=== PATIENT | male | born 1985 | race Caucasian/White ===

== ENCOUNTER 2016-06-29 08:21 | Emergency (ER) | payer MEDICARE ==
[~2016-06-29] VITALS: Ht 180.3 cm; Wt 59.0 kg
[2016-06-29] MEDS ORDERED: LIDO:MAALOX:DONNATAL 1:1:1 15 ML SINGLE DOSE SWSW ONE (09:30)
[2016-06-29] MEDS ORDERED: ONDANSETRON ODT 4 MG TAB.RAPDIS PO ONE (09:30)
[2016-06-29] MEDS ORDERED: HYDROCODONE/APAP 5/325MG TABLET. PO ONE (09:30)
[2016-06-29 09:54] LABS: BASO # 0.1 x10^3/uL (0.0-0.2); BASO % 1 % (0-3); EOS % 2 % (0-3); HEMOGLOBIN 15.1 g/dL (13.0-17.5); LYMPH # 2.1 x10^3/uL (1.0-4.8); LYMPH % 25 % (24-48); MEAN CORPUSCULAR HEMOGLOBIN 31 pg (25-35); MEAN CORPUSCULAR HGB CONC 34 g/dL (31-37); MEAN CORPUSCULAR VOLUME 89 fL (79-100); MONO % 8 % (0-9); NEUT % 64 % (31-73); PLATELET COUNT 168 x10^3/uL (140-400); RED BLOOD COUNT 4.95 x10^6/uL (4.30-5.70); RED CELL DISTRIBUTION WIDTH 12.3 % (11.5-14.5); WHITE BLOOD COUNT 8.1 x10^3/uL (4.0-11.0)
[2016-06-29 10:15] LABS: ANION GAP 9 (6-14); BLOOD UREA NITROGEN 12 mg/dL (8-26); CALCIUM 8.9 mg/dL (8.5-10.1); CARBON DIOXIDE 26 mmol/L (21-32); CHLORIDE 107 mmol/L (98-107); CREATININE 0.7 mg/dL (0.7-1.3); GFR 132.4; GLUCOSE 95 mg/dL (70-99); POTASSIUM 3.8 mmol/L (3.5-5.1); SODIUM 142 mmol/L (136-145)
[2016-06-29 10:17] LABS: ALBUMIN 3.6 g/dL (3.4-5.0); ALK PHOS 78 U/L (46-116); ALT (SGPT) 17 U/L (16-63); AST (SGOT) 17 U/L (15-37); DIRECT BILIRUBIN < 0.1 mg/dL (0.0-0.2); TOTAL BILIRUBIN 0.3 mg/dL (0.2-1.0); TOTAL PROTEIN 6.7 g/dL (6.4-8.2)
[2016-06-29] MEDS ORDERED: FAMO40TA57 PO (10:31)
[2016-06-29] MEDS ORDERED: HYDR-2666 PO (10:31)
--- NOTE | 2016-06-29 10:32 | PHYS DOC ---
Past Medical History Past Medical History: Seizure Past Surgical History: Other Additional Past Surgical Histo: hernia repair, vericocele Alcohol Use: None Drug Use: Marijuana Adult General Chief Complaint Chief Complaint: ABDOMINAL PAIN HPI HPI 30-year-old male presenting to the emergency department with right upper quadrant abdominal pain over the last 24 hours. His pain is sharp moderate and wraps around to the back. It also wraps into his groin. He denies hematuria. It is worse with food. It is worse with fatty foods. It is worse with lying down. No alleviating factors present. He reports that he was seen in another emergency department multiple times including having a negative CT of the abdomen recently. Review of systems is negative for chest pain shortness of breath nausea vomiting diarrhea or constipation. All other review of systems is negative unless otherwise noted in history of present illness. Review of Systems Review of Systems SEE ABOVE. Current Medications Current Medications Current Medications Medications (Trade) Dose Ordered Sig/Estella Start Time Stop Time Status Last Admin Dose Admin Acetaminophen/ Hydrocodone Bitart (Lortab 5/325) 2 tab 1X ONCE 06/29/16 09:30 06/29/16 09:31 DC 06/29/16 09:38 2 TAB Multi-Ingredient Mouthwash/Gargle (Gi Cocktail Single Dose) 15 ml 1X ONCE 06/29/16 09:30 06/29/16 09:31 DC 06/29/16 09:38 15 ML Ondansetron HCl (Zofran Odt) 4 mg 1X ONCE 06/29/16 09:30 06/29/16 09:31 DC 06/29/16 09:36 4 MG Allergies Allergies Allergies Coded Allergies Type Severity Reaction Last Updated Verified No Known Drug Allergies 06/29/16 No Physical Exam Physical Exam Constitutional: Well developed, well nourished, no acute distress, non-toxic appearance. [] HENT: Normocephalic, atraumatic, bilateral external ears normal, oropharynx moist, no oral exudates, nose normal. [] Eyes: PERRLA, EOMI, conjunctiva normal, no discharge. [] Neck: Normal range of motion, no tenderness, supple, no stridor. [] Cardiovascular:Heart rate regular rhythm, no murmur [] Lungs & Thorax: Bilateral breath sounds clear to auscultation [] Abdomen: Soft nontender abdomen without rebound tenderness or guarding present. Negative McBurneys point. Negative Brown sign. No ecchymosis present. Skin: Warm, dry, no erythema, no rash. [] Back: No tenderness, no CVA tenderness. [] Extremities: No tenderness, no cyanosis, no clubbing, ROM intact, no edema. [] Neurologic: Alert and oriented X 3, normal motor function, normal sensory function, no focal deficits noted. [] Psychologic: Affect normal, judgement normal, mood normal. [] Current Patient Data Vital Signs Vital Signs Date Time Temp Pulse Resp B/P Pulse Ox O2 Delivery O2 Flow Rate FiO2 06/29/16 11:05 68 18 100/62 97 Room Air 06/29/16 08:56 97.9 97.9 Lab Values Laboratory Tests Test 06/29/16 09:25 White Blood Count 8.1x10^3/uL (4.0-11.0) Red Blood Count 4.95x10^6/uL (4.30-5.70) Hemoglobin 15.1g/dL (13.0-17.5) Hematocrit 44.0% (39.0-53.0) Mean Corpuscular Volume 89fL (79-100) Mean Corpuscular Hemoglobin 31pg (25-35) Mean Corpuscular Hemoglobin Concent 34g/dL (31-37) Red Cell Distribution Width 12.3% (11.5-14.5) Platelet Count 168x10^3/uL (140-400) Neutrophils (%) (Auto) 64% (31-73) Lymphocytes (%) (Auto) 25% (24-48) Monocytes (%) (Auto) 8% (0-9) Eosinophils (%) (Auto) 2% (0-3) Basophils (%) (Auto) 1% (0-3) Neutrophils # (Auto) 5.2x10^3uL (1.8-7.7) Lymphocytes # (Auto) 2.1x10^3/uL (1.0-4.8) Monocytes # (Auto) 0.7x10^3/uL (0.0-1.1) Eosinophils # (Auto) 0.1x10^3/uL (0.0-0.7) Basophils # (Auto) 0.1x10^3/uL (0.0-0.2) Sodium Level 142mmol/L (136-145) Potassium Level 3.8mmol/L (3.5-5.1) Chloride Level 107mmol/L (98-107) Carbon Dioxide Level 26mmol/L (21-32) Anion Gap 9 (6-14) Blood Urea Nitrogen 12mg/dL (8-26) Creatinine 0.7mg/dL (0.7-1.3) Estimated GFR (Cockcroft-Gault) 132.4 Glucose Level 95mg/dL (70-99) Calcium Level 8.9mg/dL (8.5-10.1) Total Bilirubin 0.3mg/dL (0.2-1.0) Direct Bilirubin < 0.1mg/dL (0.0-0.2) Aspartate Amino Transferase (AST) 17U/L (15-37) Alanine Aminotransferase (ALT) 17U/L (16-63) Alkaline Phosphatase 78U/L (46-116) Total Protein 6.7g/dL (6.4-8.2) Albumin 3.6g/dL (3.4-5.0) Lipase 107U/L (73-393) Laboratory Tests 06/29/16 09:25 Laboratory Tests 06/29/16 09:25 EKG EKG [] Radiology/Procedures Radiology/Procedures [] Course & Med Decision Making Course & Med Decision Making Pertinent Labs and Imaging studies reviewed. (See chart for details) [] 30-year-old male presenting with abdominal pain in the right upper quadrant. Vital signs afebrile normal heart rate. Gallbladder was nontender. Soft nontender abdomen in general. Blood work obtained which showed normal chemistry panel. GI cocktail given which improved his symptoms along with oral Lortab and Zofran. On reevaluation he is feeling better. He was in discharged home to follow up with his primary care physician in 2-3 days for outpatient continued evaluation workup and care. He may be a HIDA scan candidate if his symptoms continue. Dragon Disclaimer Dragon Disclaimer This electronic medical record was generated, in whole or in part, using a voice recognition dictation system. Departure Departure Impression: Primary Impression: Right upper quadrant abdominal pain Disposition: HOME, SELF-CARE Condition: STABLE Referrals: NO PCP (PCP) NOHEMI REED MD Patient Instructions: Abdominal Pain Additional Instructions: Thank you for allowing us to participate in your care today. Followup with your primary care physician in 3 days if your symptoms do not improve. If you do not have a primary care provider you can ask for a list of our primary care providers. Return to the emergency department you have any new or concerning findings. This should be evaluated by the primary care physician and any necessary consulting services for continued management within a few days after discharge. Return to emergency room if you have any new or concerning symptoms including but not limited to fever, chills, nausea, vomiting, intractable pain, any new rashes, chest pain, shortness of air, uncontrolled bleeding, difficulty breathing, and/or vision loss. You may have been prescribed medication that can change in your level of thinking and ability to operate machinery. These medications include hydrocodone and Ativan. Also, Benadryl has been known to do this as well. Be sure to check with your pharmacist and ask if the medications you've prescribed can affect your level of consciousness. I recommend not operating heavy machinery or driving while on medication such as these. Scripts Hydrocodone Bit/Acetaminophen (Hydrocodone-Apap 5-325 )1 Each Tablet1 Tab PO PRN Q6HRS PRN PAIN #6 TAB Be careful as this medication may cause you to be drowsy or tired. Do not drive on this medication. Prov:KYREE BROWN MD 06/29/16 Famotidine (Pepcid)40 Mg [id number] Mg PO HS #14 TAB Ref 0 Prov:KYREE BROWN MD 06/29/16 KYREE BROWN MD Jun 29, 2016 10:31
[2016-06-29 11:05] VITALS: BP 100/62
== END 2016-06-29 11:13 | disposition home or self-care (01) ==
LOC: ER 08:21
DX: R10.11 Right upper quadrant pain (principal); F12.10 Cannabis abuse, uncomplicated; Z98.890 Other specified postprocedural states; Z87.438 Personal history of other diseases of male genital organs
CPT/HCPCS: 36415; 80048; 80076; 83690; 85027; 99284; Q0162

== ENCOUNTER 2016-07-31 21:53 | Emergency (ER) | payer MEDICARE ==
[~2016-07-31] VITALS: Ht 180.3 cm; Wt 61.2 kg
[~2016-07-31 21:53] MED LIST: FAMO40TA57 PO; HYDR-2666 PO
--- NOTE | 2016-07-31 22:59 | PHYS DOC ---
Past Medical History Past Medical History: Seizure, Other Additional Past Medical Histor: cerebral palsy Past Surgical History: Other Additional Past Surgical Histo: hernia repair, vericocele Alcohol Use: None Drug Use: Marijuana Adult General Chief Complaint Chief Complaint: ABDOMINAL PAIN HPI HPI Patient is a 30 year old male who presents the emergency room with a complaint of diffuse abdominal pain that began this afternoon at approximately 6 PM. Patient has a history of chronic abdominal pain which she's been worked up in [facility]. He recently had a HIDA scan performed to rule out gallbladder dysfunction. He reports that the HIDA scan was normal. Patient was seen here in June of this year with a similar complaint as well. Patient states he is currently waiting on a consult for "scoping". He has had multiple CT scans performed within the past 2 years. He denies vomiting, diarrhea or constipation. He states that he feels a little nauseous at times with the pain. Patient states that his pain was primarily To moderately controlled with Lortab. He states this change last week with his primary care doctor put him on anti-inflammatories. Patient states that he was at work tonight when the pain began to escalate. He states that he was able to complete some of his chores around work and then the pain began to double him over. He states that his last by mouth intake was approximately 8 PM. He states that his last bowel movement was 6 PM it was normal. He denies any dysuria or hematuria. Denies flank pain. He denies pain in his penis or testicles. Patient states that if his pain gets out of control, he has seizures. He is concerned that he may have a seizure because of the pain this evening. Review of Systems Review of Systems Constitutional: Denies fever or chills [] Eyes: Denies change in visual acuity, redness, or eye pain [] HENT: Denies nasal congestion or sore throat [] Respiratory: Denies cough or shortness of breath [] Cardiovascular: No additional information not addressed in HPI [] GI: Denies abdominal pain, nausea, vomiting, bloody stools or diarrhea [] : Denies dysuria or hematuria [] Musculoskeletal: Denies back pain or joint pain [] Integument: Denies rash or skin lesions [] Neurologic: Denies headache, focal weakness or sensory changes [] Endocrine: Denies polyuria or polydipsia [] Current Medications Current Medications Current Medications Medications (Trade) Dose Ordered Sig/Estella Start Time Stop Time Status Last Admin Dose Admin Diphenhydramine HCl (Benadryl) 25 mg 1X ONCE 07/31/16 23:00 07/31/16 23:01 DC 07/31/16 23:18 25 MG Fentanyl Citrate (Fentanyl 2ml Vial) 50 mcg 1X ONCE 07/31/16 23:00 07/31/16 23:01 DC 07/31/16 23:19 50 MCG Metoclopramide HCl (Reglan) 10 mg 1X ONCE 07/31/16 23:00 07/31/16 23:01 DC 07/31/16 23:18 10 MG Sodium Chloride (Iv Sodium Chloride 0.9% 1000ml Bag) 1,000 ml @ 1,000 mls/hr Q1H 07/31/16 23:00 07/31/16 23:59 DC 07/31/16 23:18 1,000 MLS/HR Sodium Chloride (Normal Saline Flush) 10 ml QSHIFT PRN 07/31/16 23:00 08/01/16 00:01 DC Allergies Allergies Allergies Coded Allergies Type Severity Reaction Last Updated Verified No Known Drug Allergies 06/29/16 No Physical Exam Physical Exam Constitutional: Well developed, well nourished, no acute distress, non-toxic appearance. Patient is lying in a low semi-Fowlers position in no acute distress. Patient smells of cigarette smoke HENT: Normocephalic, atraumatic, bilateral external ears normal, oropharynx moist, no oral exudates, nose normal. Widespread dental caries and very stages of decay. Eyes: PERRLA, EOMI, conjunctiva normal, no discharge. [] Neck: Normal range of motion, no tenderness, supple, no stridor. [] Cardiovascular:Heart rate regular rhythm, no murmur [] Lungs & Thorax: Bilateral breath sounds clear to auscultation [] Abdomen: Patient scaphoid abdomen is soft. He has normoactive bowel sounds in all 4 quadrants. He complains of tenderness to palpation throughout his abdomen , but primarily on the right side. There is no pain at McBurney's point. There is no palpable defect to the abdominal wall or pulsatile mass. There is no rebound or guarding. Skin: Warm, dry, no erythema, no rash. [] Back: No tenderness, no CVA tenderness. Extremities: No tenderness, no cyanosis, no clubbing, ROM intact, no edema. [] Neurologic: Alert and oriented X 3, normal motor function, normal sensory function, no focal deficits noted. [] Psychologic: Affect normal, judgement normal, mood normal. [] Current Patient Data Vital Signs Vital Signs Date Time Temp Pulse Resp B/P Pulse Ox O2 Delivery O2 Flow Rate FiO2 07/31/16 23:38 54 92/65 96 Room Air 07/31/16 23:19 16 07/31/16 22:07 97.3 97.3 Lab Values Laboratory Tests Test 07/31/16 22:14 07/31/16 22:28 White Blood Count 7.6x10^3/uL (4.0-11.0) Red Blood Count 4.82x10^6/uL (4.30-5.70) Hemoglobin 15.1g/dL (13.0-17.5) Hematocrit 43.6% (39.0-53.0) Mean Corpuscular Volume 91fL (79-100) Mean Corpuscular Hemoglobin 31pg (25-35) Mean Corpuscular Hemoglobin Concent 35g/dL (31-37) Red Cell Distribution Width 13.0% (11.5-14.5) Platelet Count 151x10^3/uL (140-400) Neutrophils (%) (Auto) 56% (31-73) Lymphocytes (%) (Auto) 34% (24-48) Monocytes (%) (Auto) 8% (0-9) Eosinophils (%) (Auto) 2% (0-3) Basophils (%) (Auto) 0% (0-3) Neutrophils # (Auto) 4.2x10^3uL (1.8-7.7) Lymphocytes # (Auto) 2.6x10^3/uL (1.0-4.8) Monocytes # (Auto) 0.6x10^3/uL (0.0-1.1) Eosinophils # (Auto) 0.2x10^3/uL (0.0-0.7) Basophils # (Auto) 0.0x10^3/uL (0.0-0.2) Sodium Level 143mmol/L (136-145) Potassium Level 3.6mmol/L (3.5-5.1) Chloride Level 106mmol/L (98-107) Carbon Dioxide Level 28mmol/L (21-32) Anion Gap 9 (6-14) Blood Urea Nitrogen 19mg/dL (8-26) Creatinine 1.0mg/dL (0.7-1.3) Estimated GFR (Cockcroft-Gault) 87.7 BUN/Creatinine Ratio 19 (6-20) Glucose Level 98mg/dL (70-99) Calcium Level 9.1mg/dL (8.5-10.1) Total Bilirubin 0.5mg/dL (0.2-1.0) Aspartate Amino Transferase (AST) 16U/L (15-37) Alanine Aminotransferase (ALT) 26U/L (16-63) Alkaline Phosphatase 79U/L (46-116) Total Protein 7.1g/dL (6.4-8.2) Albumin 4.1g/dL (3.4-5.0) Albumin/Globulin Ratio 1.4 (1.0-1.7) Lipase 104U/L (73-393) Urine Collection Type Unknown Urine Color Yellow Urine Clarity Clear Urine pH 5.5 Urine Specific [place] >=1.030 Urine Protein 30mg/dL (NEG-TRACE) Urine Glucose (UA) Negativemg/dL (NEG) Urine Ketones (Stick) Negativemg/dL (NEG) Urine Blood Trace (NEG) Urine Nitrite Negative (NEG) Urine Bilirubin Small (NEG) Urine Urobilinogen Dipstick 0.2mg/dL (0.2 mg/dL) Urine Leukocyte Esterase Negative (NEG) Urine RBC 6-10/HPF (0-2) Urine WBC Occ/HPF (0-4) Urine Squamous Epithelial Cells Few/LPF Urine Bacteria 0/HPF (0-FEW) Urine Mucus Marked/LPF Urine Opiates Screen Neg (NEG) Urine Methadone Screen Neg (NEG) Urine Barbiturates Neg (NEG) Urine Phencyclidine Screen Neg (NEG) Urine Amphetamine/Methamphetamine Neg (NEG) Urine Benzodiazepines Screen Neg (NEG) Urine Cocaine Screen Neg (NEG) Urine Cannabinoids Screen Pos (NEG) Urine Ethyl Alcohol Neg (NEG) Laboratory Tests 07/31/16 22:14 Laboratory Tests 07/31/16 22:14 EKG EKG [] Radiology/Procedures Radiology/Procedures [] Course & Med Decision Making Course & Med Decision Making Patient received 50 g of fentanyl, 10 mg of Reglan 25 mg of Benadryl. He also received a half liter bolus of normal saline. I reviewed patient's laboratory tests findings with him. I reassessed his abdomen. Patient states that he feels much better. I reassured the patient this appears to be an exacerbation of his chronic abdominal pain. I informed him that I would prescribe him some medication. Specifically towards chronic abdominal pain. Denies contact his doctor in the morning to schedule follow-up appointment. Patient states that he will do this. Dragon Disclaimer Dragon Disclaimer This electronic medical record was generated, in whole or in part, using a voice recognition dictation system. Departure Departure Impression: Primary Impression: Abdominal pain Condition: IMPROVED Referrals: BEN HERNANDEZ (PCP) Patient Instructions: Abdominal Pain, [id number], Chronic Pain Additional Instructions: 1. Laboratory test here today including CBC, CMP, lipase and urine are normal. There is no evidence of an infection, liver dysfunction, kidney dysfunction. This appears to be an exacerbation of chronic abdominal pain. 2. Review the discharge instructions provided fo self care return to the emergency department. 3. You're being prescribed a medication designed specifically for abdominal pain. Be sure to take it as prescribed. 4. Call your doctor in the morning to schedule follow-up appointment. Be sure to tell the office staff that you were seen here in the emergency department tonight. Scripts Metoclopramide Hcl (Reglan)10 Mg Tablet1 Tab PO TID nausea and abdominal pain # 21 TAB Prov:CECILIA SANTA 07/31/16 Hyoscyamine Sulfate (Levsin)0.125 Mg Tablet1 Tab PO TID abdominal pain #21 TAB Ref 1 Prov:CECILIA SANTA 07/31/16 CECILIA SANTA Jul 31, 2016 22:59
[2016-07-31 23:00] LABS: BASO % 0 % (0-3); EOS % 2 % (0-3); HEMATOCRIT 43.6 % (39.0-53.0); HEMOGLOBIN 15.1 g/dL (13.0-17.5); LYMPH # 2.6 x10^3/uL (1.0-4.8); LYMPH % 34 % (24-48); MEAN CORPUSCULAR HEMOGLOBIN 31 pg (25-35); MEAN CORPUSCULAR HGB CONC 35 g/dL (31-37); MEAN CORPUSCULAR VOLUME 91 fL (79-100); MONO % 8 % (0-9); NEUT % 56 % (31-73); PLATELET COUNT 151 x10^3/uL (140-400); RED BLOOD COUNT 4.82 x10^6/uL (4.30-5.70); WHITE BLOOD COUNT 7.6 x10^3/uL (4.0-11.0)
[2016-07-31] MEDS ORDERED: FENTANYL PF 100 MCG/2 ML VIAL. IV ONE (23:00)
[2016-07-31] MEDS ORDERED: 0.9 % SODIUM CHLORIDE 10 ML DISP.SYRIN. IV PRN (23:00)
[2016-07-31] MEDS ORDERED: DIPHENHYDRAMINE 50 MG/ML VIAL IVP ONE (23:00)
[2016-07-31] MEDS ORDERED: METOCLOPRAMIDE HCL 10 MG/2 ML VIAL. IV ONE (23:00)
[2016-07-31] MEDS ORDERED: IV NORMAL SALINE 1000ML BAG 1,000 ML IV SCH (23:00)
[2016-07-31 23:01] LABS: BILIRUBIN,URINE SMALL (NEG); GLUCOSE,URINE NEGATIVE (NEG); NITRITE,URINE NEGATIVE (NEG); PH,URINE 5.5; PROTEIN,URINE 30 mg/dL (NEG-TRACE); UROBILINOGEN,URINE 0.2 mg/dL (0.2 mg/dL)
[2016-07-31 23:07] LABS: BARBITURATES NEG (NEG); BENZODIAZEPINES NEG (NEG); CANNABINOIDS POS (NEG); COCAINE NEG (NEG); METHADONE NEG (NEG); OPIATES NEG (NEG); PHENCYCLIDINE NEG (NEG)
[2016-07-31 23:08] LABS: BACTERIA,URINE 0 /HPF (0-FEW); SQUAMOUS EPITHELIAL CELL,UR FEW /LPF; WBC,URINE OCC /HPF (0-4)
[2016-07-31 23:08] LABS: CALCIUM 9.1 mg/dL (8.5-10.1); GFR 87.7; POTASSIUM 3.6 mmol/L (3.5-5.1)
[2016-07-31 23:09] LABS: ETHANOL, URINE NEG (NEG)
[2016-07-31 23:14] LABS: ALBUMIN 4.1 g/dL (3.4-5.0); ALBUMIN/GLOBULIN RATIO 1.4 (1.0-1.7); TOTAL BILIRUBIN 0.5 mg/dL (0.2-1.0); TOTAL PROTEIN 7.1 g/dL (6.4-8.2)
[2016-07-31] MEDS ORDERED: METO10TA81 PO (23:32)
[2016-07-31] MEDS ORDERED: HYOS0.1264 PO (23:32)
[2016-07-31 23:38] VITALS: BP 92/65
== END 2016-07-31 23:51 | disposition home or self-care (01) ==
LOC: ER 21:53
DX: R10.84 Generalized abdominal pain (principal); R11.0 Nausea; R56.9 Unspecified convulsions; K02.9 Dental caries, unspecified; G89.29 Other chronic pain; G80.9 Cerebral palsy, unspecified; F17.210 Nicotine dependence, cigarettes, uncomplicated; F12.10 Cannabis abuse, uncomplicated; Z98.890 Other specified postprocedural states
CPT/HCPCS: 36415; 80053; 80305; 80320; 81001; 83690; 85027; 96374; 96375; 99284; J1200; J2765; J3010; J7030; G0481

== ENCOUNTER → 2016-08-09 | Day surgery (SDC) | payer MEDICAID, MEDICARE ==
[~2016-08-09] MED LIST changes: +FENTANYL PF 100 MCG/2 ML VIAL. IV PRN; +HYOS0.1264 PO; +IV RINGERS,LACTATED 1000ML 1,000 ML IV SCH; +LAMO200T3 PO; +LIDOCAINE 1% 1 ML SYRINGE. ID PRN; +LIDOCAINE 2% PF Vial for OR 5 ML VIAL. ONE; +METO10TA81 PO; +MIDAZOLAM HCL/PF 2 MG/2 ML VIAL. IV PRN; +PROPOFOL 40 ML IV ONE
[2016-08-09 13:53] VITALS: BP 107/70
== END | disposition home or self-care (01) ==
LOC: ENDOS 10:00
PROVIDERS: ATTEND Internal Medicine Gastroenterology
DX: K29.50 Unspecified chronic gastritis without bleeding (principal); Z72.89 Other problems related to lifestyle; F17.210 Nicotine dependence, cigarettes, uncomplicated
CPT/HCPCS: 43235; J2704